=== PATIENT | male | born 1970 | race Caucasian/White ===

== ENCOUNTER 2024-12-25 06:20 | Inpatient (IN) | payer OTHER, SELFPAY ==
[2024-12-25] VITALS (20 sets, daily range): BP systolic 105–162; BP diastolic 53–106; BMI 35.2; BMI 34.3
--- NOTE | 2024-12-25 02:27 | ED.GENMED ---
History of Present Illness
General
Chief Complaint: Chest Pain
Source: patient
Exam Limitations: none
Time Seen by Provider: 12/25/24 02:11
Nursing documentation reviewed up to this point in time: agreed with
History of Present Illness
History of Present Illness:
54-year-old male limited past medical history nondrinker non-smoker presents with intermittent chest pain in his chest into his back describes a pressure felt nauseous this evening when he had his symptoms started about 3 days ago, no prior episodes
before Thursday, no history of DVT PE, no prior abdominal surgery has had knee surgery no history of DVT PE no fever chills does not feel short of breath
Past History
Past History
ED Past Medical History: None
ED Past Surgical History: Orthopedic
Social History
Tobacco: Non-smoker
Alcohol: None
Drug: None
Personal:
Living: with family
Employment: Employed
Family History
Family History: Negative CAD
Review of Systems
Review of Systems
All Other Systems: Not applicable
Constitutional: Denies fever or fatigue
Cardiac: Reports chest pain
ABD/GI: Reports nausea
Phy Exam
Physical Exam
Physical Exam:
Physical Exam
General: no apparent distress, not acutely ill
Neck: No jaundice
Heart: s1/s2 regular rate and rhythm, no murmur. equal radial pulses.
Lungs: no acute respiratory distress. clear bilaterally
Abdomen: Soft nontender
Neuro: alert and oriented. no focal neurological deficits
Skin: no rash
Psychiatric: well kept. interactive and cooperative
Extremities: no edema.
Scores
Heart Score for Chest Pain Patients
STEMI patient?: No
History: Moderately Suspicious
ECG: Normal
Age: >45 - <65 years
Risk Factors: 1 or 2 Risk Factors
Troponin: >1 - <3 x Normal Limit
Heart Score for Chest Pain Patients: 4
Heart Score Risk: 20.3% MACE over next 6 weeks
Course
Orders/Labs/Results
Orders:
Orders
12/25/24 01:52
EKG [Electrocardiogram (*1)] Urgent
Reason for Study: Chest Pain
EKG- Treatment ONCE
12/25/24 02:13
Cardiac Monitoring- Treatment ONCE
IV Insert/Care/Rem.- Treatment PRN
O2 Therapy [RESP] Urgent
Titrate/Wean O2 to maintain O2 sat greater than (%): 90
Special Instructions: Maintain sats >/=90%
Pulse Ox/spot Check [RESP] Urgent
Quantity: 1
Special Instructions: ON ROOM AIR
12/25/24 02:22
Complete Blood Count/With Diff Urgent
Comprehensive Metabolic Panel Urgent
Glycohemoglobin (HgbA1c) Urgent
Lipase Urgent
Comment: ADD ON
NT-proBNP Urgent
Comment: ADD ON
Troponin I Urgent
12/25/24 02:25
CR Chest Portable - 1 View Urgent
Comment:
Reason For Exam: cp
Reason Study Needs to be Portable: Patient Unstable
12/25/24 02:26
Aspirin 325 mg PO NOW STA
Nitroglycerin Sublingual [Nitrostat (Sublingual)] 0.4 mg SL [id number] PRN
12/25/24 02:29
Add On- LAB Urgent
Tests Added?: Lipase
12/25/24 02:38
D-Dimer Urgent
12/25/24 03:00
Electrocardiogram (*1) Urgent
Reason for Study: Chest Pain
EKG- Treatment ONCE
12/25/24 03:24
Add On- LAB Urgent
Tests Added?: proBNP
12/25/24 03:31
Heparin 4,000 units IV NOW STA
Nursing to Place Non Medication Order As Directed
Physician Order: PTT 6 hours after initial start of Heparin infusion
Above order entered?: Yes
12/25/24 03:37
Ondansetron Injectable [Zofran] 4 mg IV NOW STA
12/25/24 03:39
Add On- LAB Urgent
Tests Added?: hemoglobin a1c
12/25/24 03:41
CARDIOLOGY CONSULT Urgent
Consulting Provider: Em Sanches
Was physician already notified: Yes
Metoprolol [Lopressor] 5 mg IV NOW STA
12/25/24 03:45
PTT Urgent
Comment: Obtain baseline before beginning heparin infusion if not already collected
Heparin 19033 Units/250 ml 25,000 units in 250 ml IV PER PROTOCOL
Weight to be used for heparin protocol in kilograms (kg):: 111.4
Protocol:: Cardiac Tx/Acute Coronary
PTT Goal Range to be used:: PTT 73 to 111 seconds
Order type:: Initial
INITIAL Infusion Dose (UNITS/KG/hr) & then follow protocol:: 12 units/kg/hr
Infusion Dose in UNITS/hr & then follow protocol (UNITS/hr):: 1,000
INFUSION RATE in mL/hr & then follow protocol (mL/hr):: 10
PTT less than or equal to 64 seconds:: Increase rate by 200 units/hr (+ 2 mL/hr)
PTT 64.1 to 72.9 seconds:: Increase rate by 100 units/hr (+ 1 mL/hr)
PTT 73 to 111 seconds:: Target Range. No change in rate.
PTT 111.1 to 130.9 seconds:: Decrease rate by 100 units/hr (- 1 mL/hr)
PTT 131 to 199.9 seconds:: HOLD for 1 hr. Then decrease rate by 200 units/hr (- 2 mL/hr)
PTT greater than or equal to 200 seconds:: HOLD for 2 hrs & Notify Provider. Then decrease by 200 units/hr (-
2 mL/hr)
Lab follow-up:: Each change, PTT q6h until 2 consecutive are therapeutic. Then PTT
daily.
Nitroglycerin 100 mg/250 ml [Nitroglycerin Premix] 100 mg in 250 ml IV PER PROTOCOL
Initial dose in mcg/min, then titrate:: 20
Titrate to keep:: Chest Pain Free
Titrate by mcg/min:: 5 mcg/min, may increase by 10 mcg/min if dose > 20 mcg/min
Frequency of titrations (minutes):: every 3-5 minutes
Maximum dose in mcg/min:: 200
Begin to taper infusion when:: Remained at goal for 2hrs
Taper by mcg/min:: 5 mcg/min
Frequency of taper (minutes) if patient maintains goal:: 30
Taper to off?: Yes
If infusion off & no longer maintaining goal:: Contact Provider
12/25/24 05:48
Admit/Transfer Patient As Directed
Co-Sign Provider:
Level of Care: Inpatient admission
Assign to:: IVU
Physician / Group: Vargas
Diagnosis: NSTEMI / ACS
Reason for Hospitalization: NSTEMI / ACS
Expected length of stay greater than two midnights?: Yes
ELOS- Estimated Length of Stay in days: 3
I certify the patient meets the requirements for IP care: Yes
PRN Pain Medication Management As Directed
May give lesser potent ordered pain med per pt: Yes
preference::
Protocol:: Medication orders for pain may be administered in a
manner that supports deferring to patient preference
when the pt is:
- Requesting an ordered lesser potent pain medication.
Least to most potent pain medications are defined
as: acetaminophen < NSAID < tramadol < opioids
(morphine, oxycodone, hydromorphone).
- Requesting a lesser dose of the same medication IF
ORDERED.
- Requesting a less intrusive route of administration
if both routes are prescribed by the provider (PO <
IV).
12/25/24 05:49
Code Status As Directed
Resuscitation Status: Full Code
12/25/24 06:26
Troponin I Urgent
12/25/24 10:00
PTT Urgent
Abnormal Lab Results
12/25/24
02:22
Neutrophils % 75.7 H %
(42.2-75.2)
Lymphocytes % 17.7 L %
(20.5-51.1)
Glucose 219 H mg/dl
(70-99)
Troponin I 0.088 H* ng/ml
12/25/24 02:22
12/25/24 02:22
Vital Signs
Initial and Last Documented VS:
Initial Vital Signs
Temp Pulse Resp BP Pulse Ox
97.8 F 72 26 140/94 100
12/25/24 01:58 12/25/24 01:58 12/25/24 01:58 12/25/24 01:58 12/25/24 01:58
Last Documented Vital Signs
Temp Pulse Resp BP Pulse Ox
97.6 F 63 16 105/53 98
12/25/24 02:08 12/25/24 06:30 12/25/24 06:30 12/25/24 06:00 12/25/24 06:30
MDM/Problems Addressed
Differential Diagnosis Includes:
ACS PE pneumo pancreatitis biliary
MDM/Problems Addressed:
Chest pain
*Pulse Oximetry
SaO2: 97
Oxygen Mode of Delivery: Room air
Patient hypoxic: no
*Critical Care Note
Total Time (30-74mins, 75-104mins- exclusive of procedures): 33
Update Note
Update Note:
315, update patient with persistent pain serial EKG noted did improve with nitrates, troponin is pending proBNP pending chest x-ray noted follow-up closely
ED Attending Note
-
Portions of this chart may have been created with voice recognition software.� Occasional wrong word or��sound alike� substitutions may have occurred due to the inherent limitations of voice recognition software.
Discharge Plan
Departure
Patient Disposition: Admit
Date of Disposition: 12/25/24
Time of Disposition: 03:40
Admit to: IVU
Presentation/result/management discussed w/ accepting MD/DO: Hospitalist
Condition: Fair
Discharge Problem:
ACS (acute coronary syndrome)
Interventions
Interventions:
*Risk Screen - Suicide Last Done: 12/25/24 01:58
*General Assessment Last Done: 12/25/24 02:10
*Neglect/Abuse Screening Last Done: 12/25/24 01:58
*ED- Fall Risk Assessment Last Done: 12/25/24 02:10
*ED COVID-19 Vaccine History Last Done: 12/25/24 02:10
ED- Cardiac Assessment Last Done: 12/25/24 02:10
[2024-12-25 02:34] LABS: Hematocrit 46.4 % (39.0-52.0); Hemoglobin 15.8 g/dL (13.0-18.0); Mean Corp Hgb Conc. 34.1 g/dL (33.0-37.0); Mean Corpuscular Volume 87.2 fL (80.0-94.0); Nucleated Red Blood Cells % 0 % (-); Platelet Count 191 10^3/uL (130-400); Red Cell Dist. Width 13.2 % (11.5-14.5)
[2024-12-25] MEDS: ASPIRIN 325 MG PO (02:37)
[2024-12-25] MEDS: NITROSTAT (SUBLINGUAL) 0.4 MG SL (02:53)
[2024-12-25 02:55] LABS: ALT (SGPT) 40 U/L (0-50); AST (SGOT) 35 U/L (17-59); Albumin 4.4 g/dl (3.5-5.0); Alkaline Phosphatase 65 U/L (38-126); Blood Urea Nitrogen 17 mg/dl (9-20); Calcium 9.3 mg/dl (8.4-10.2); Carbon Dioxide 28 mmol/L (22-30); Chloride 103 mmol/L (98-107); Estimated Creatinine Clearance > 125 ml/min; Glucose 219 mg/dl (70-99); Lipase 101 U/L (23-300); Potassium 4.3 mmol/L (3.5-5.1); Sodium 138 mmol/L (135-145); Total Protein 7.4 g/dl (6.3-8.2); eGFR > 60.00
[2024-12-25 03:31] LABS: Troponin I 0.088 ng/ml
[2024-12-25 03:33] LABS: D-Dimer < 0.27 ug/mlFEU (0.00-0.50)
[2024-12-25] MEDS: ZOFRAN 4 MG IV (03:41)
[2024-12-25] MEDS: HEPARIN 4000 UNITS IV (03:51)
[2024-12-25] MEDS: HEPARIN 25000 UNITS/250 ML IV (03:55)
[2024-12-25 04:10] LABS: APTT 24.2 Sec (23.4-35.0)
--- NOTE | 2024-12-25 05:50 | HPS.HSE ---
Family Physician
-
Family Physician: Geraldine Smith PA-C
Chief Complaint
-
Chest Pain
History of Present Illness
Patient is a 54y M with no known PMH who presents to ED complaining of chest pain x 4-5 days. Patient states that his symptoms initially started on Thursday while [place] football [place] the beach. He noted chest heaviness / pressure at the time
which improved after he rested fo several minutes. Later that evening he had similar pressure while walking - which again improved with rest. He reports intermittent similar symptoms over the next few days - always with activity and improved with
rest. He states that pain became much worse this evening and did not resolve quickly. He noted associated nausea / dry heaves. No diaphoresis or shortness of breath. Pain radiated into the back and both shoulders.
Patient presented to the ED for further evaluation and treatment.
He states that the pain was initially 7/10 on arrival and is currently /10.
Medical History
Past Medical History
Past Medical History: Reports None
Past Surgical History: Reports Other
Additional Past Surgical History:
L Quadriceps Repair
Social History
Tobacco: Non-smoker
Alcohol: Occasional
Drug: None
Family History
Family History: Other (CAD on mother / father sides of the family.)
Allergies / Home Medications
Allergies reflects when Allergies were last updated in [facility].
Home Medications with original date entered in [facility]
Allergy/Medication List:
Allergies
Allergy/AdvReac Type Severity Reaction Status Date / Time
No Known Allergies Allergy Verified 12/25/24 02:00
Home Medications
No Meds [No Current Medications] 12/25/24
Review of Systems
-
History Source: Patient
A 12 point ROS was completed and negative except as noted: Yes
Constitutional: Denies Fever or Chills
Respiratory: Denies Cough or Trouble Breathing
Cardiac: Reports Chest Pain; Denies Palpitations
Abdomen/GI: Reports Nausea and Vomiting; Denies Abdominal Pain or Diarrhea
: Denies Dysuria or Frequency
Musculoskeletal: Denies Joint Pain or Edema
Neurological: Denies Dizzy or Headache
Psych: Denies Depression or Anxiety
Physical Exam
Vital Signs
Vital Signs
Temp Pulse Resp BP Pulse Ox
97.6 F 59 19 111/61 98
12/25/24 02:08 12/25/24 04:19 12/25/24 04:15 12/25/24 04:19 12/25/24 04:15
Physical Exam
General: Other (54y M in no acute distress.)
HEENT: Moist mucous membranes and PERRLA
Respiratory: Clear; No Wheezes, Rales or Rhonchi
Cardiac: S1/S2 and Regular Rhythm; No Murmur
GI: Soft, Non Tender, Non Distended and Normal Bowel Sounds
Musculoskeletal: No Clubbing, No Cyanosis and No Edema
Neuro: AO x 3
Laboratory Results
-
12/25/24 02:22
12/25/24 02:22
Laboratory Results
APTT 24.2 Sec (23.4-35.0) 12/25/24 03:45
Total Bilirubin 0.6 mg/dl (0.2-1.3) 12/25/24 02:22
AST 35 U/L (17-59) 12/25/24 02:22
ALT 40 U/L (0-50) 12/25/24 02:22
Alkaline Phosphatase 65 U/L (38-126) 12/25/24 02:22
Troponin I 0.088 ng/ml H* 12/25/24 02:22
Lipase 101 U/L (23-300) 12/25/24 02:22
Impression/Plan
-
A/P: Patient is a 54y M with no known PMH who presents to ED complaining of chest pain x several days.
NSTEMI / ACS
- Admit for further evaluation and treatment.
- Good story for anginal symptoms. EKG unremarkable. Initial troponin 0.088.
- Follow troponin to peak.
- IV heparin, ASA, statin, etc.
- Check lipid panel.
- Follow for any new / recurrent symptoms.
- Cardiology consulted for further recommendations and probable ischemic evaluation.
Hyperglycemia
- Random glucose > 200. Check A1C to confirm DM-II diagnosis.
- Follow glucose and cover with SSI as needed.
Obesity due to excess calories
- Affects all aspects of care including glycemic control and cardiac risk.
- Encourage healthy diet and increased activity with goal of weight loss.
DVT Prophylaxis: On IV heparin at present.
Code Status: Full
[2024-12-25 07:42] LABS: Troponin I 0.369 ng/ml
[2024-12-25 08:08] LABS: Glucose - Point of Care 140 mg/dl (70-99)
--- NOTE | 2024-12-25 08:37 | W.PN.HOSP.TC ---
Today's Communication/Plan
-
see A/P
Assessment / Plan
Assessment / Plan
54 yo M with no known PMH who presented to ED complaining of chest pain x 4-5 days. His symptoms initially started on Thursday while playing football on the beach. He noted chest heaviness / pressure at the time which improved after he rested
for several minutes. Later that evening he had similar pressure while walking - which again improved with rest. He reports intermittent similar symptoms over the next few days - always with activity and improved with rest. He states that pain
became much worse this evening and did not resolve quickly. He noted associated nausea / dry heaves. No diaphoresis or shortness of breath. Pain radiated into the back and both shoulders.
Patient presented to the ED for further evaluation and treatment.
A/P:
# Chest pain, likely 2/2 NSTEMI / ACS
EKG unremarkable.
Troponin 0.088 -> 0.369, cont to follow to peak.
Check echo
Cont IV heparin, ASA, statin, etc.
Check LDL
Cardiology consulted for further recommendations and probable ischemic evaluation.
# Hyperglycemia
Random glucose > 200.
Check A1C to confirm DM-II diagnosis.
Follow glucose and cover with SSI as needed.
# Obesity due to excess calories, BMI 34
Affects all aspects of care including glycemic control and cardiac risk.
Encourage healthy diet and increased activity with goal of weight loss.
DVT Prophylaxis: On IV heparin at present.
Code Status: Full
DW RN
Anticipated Discharge: > 48 hours
Subjective/Interval History
-
Date of Service: December 25, 2024
Objective Data
-
Labs:
Laboratory Results
12/25/24 12/25/24 12/25/24
02:22 03:45 10:00
WBC 8.0
Hgb 15.8
Hct 46.4
Plt Count 191
APTT 24.2 Pending
Sodium 138
Potassium 4.3
Chloride 103
Carbon Dioxide 28
BUN 17
Creatinine 0.8
Glucose 219 H
Calcium 9.3
Total Bilirubin 0.6
AST 35
ALT 40
Alkaline Phosphatase 65
Vital Signs:
Vital Signs
Temp Pulse Resp BP Pulse Ox
36.4 C 63 16 105/53 98
12/25/24 02:08 12/25/24 06:30 12/25/24 06:30 12/25/24 06:00 12/25/24 06:30
Review of Systems
-
History Source: Patient
Cardiac: Reports Chest Pain (mild ache at rest)
Physical Exam
-
General: Well Developed, Well Nourished, No Apparent Distress, Comfortable, Conversant and Obese; Negative Respiratory Distress
HEENT: Normocephalic, Atraumatic, Nose Appears Normal and Ears Appear Normal
Respiratory: Clear to Auscultation and Non Labored Respirations; Negative Accessory Resp Muscle Use
Cardiac: Regular Rhythm and S1/S2
GI: Soft, Nontender, Nondistended and Normal Bowel Sounds
Skin: Warm and Dry
Neuro: Awake, Alert, Oriented and AO x 3
Psych: Calm and Intact Judgement/Insight
Data Reviewed
-
Labs: Labs Reviewed by me
[2024-12-25] MEDS: LOW STRENGTH ASPIRIN 81 MG PO (08:45)
[2024-12-25 09:23] LABS: LDL Cholesterol, Direct 162 mg/dl
--- NOTE | 2024-12-25 09:37 | CON.CAR ---
Consultation
Consultation Request
Date/Time Consultation Requested: December 25, 2024
Date/Time Consultation Performed: December 25, 2024
Requesting Provider: Emergency department
Performing Provider: Dr Jose Sanches
Reason for Consultation: Chest pain
Medical History
-
Chief Complaint: Chest pain
History of Present Illness:
He presents to the emergency department complaining of chest discomfort over the past 4 to 5 days. He notes that chest pain symptoms started 5 days ago while playing football on the beach. He noted a heaviness and pressure in his chest at that
time. This improved after several minutes of rest. Later that evening he had a similar episode of chest discomfort while walking which again improved with rest. He reports that he has had similar symptoms intermittently over the subsequent days,
always with activity and always improves with rest. His pain worsened in severity on the evening of presentation. There was associated nausea and some dry heaves. He did note radiation to his back and both shoulders. No diaphoresis and no
shortness of breath.
In the emergency department there is concern for unstable coronary syndrome.
He was treated with sublingual nitroglycerin and started on intravenous heparin, given aspirin and started on statin.
My evaluation of his EKGs
ECG 1: Sinus rhythm at 72 bpm, normal and no significant change from ECG dated 12/06/2021
ECG 2: Sinus rhythm at 61 bpm, normal and no change.
Initial troponin 0.088 and subsequent troponin 4 hours later 0.369
Initial proBNP is 32.7.
Chest x-ray shows normal-sized heart there is suggestion of possible increased pulmonary vascular congestion.
Past medical history:
Denies
Past Medical History
Past Medical History: None
Social History
Tobacco: Non-Smoker
Alcohol: Occasional
Drug: None
Personal:
Living: With Family
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
Family History
Family History: Reviewed & Not Pertinent (No family history of early coronary artery disease. His mother had coronary artery stenting age 75.)
Allergies / Home Medications
Allergy/AdvReac Type Severity Reaction Status Date / Time
No Known Allergies Allergy Verified 12/25/24 02:00
�Medication �Instructions �Recorded �Confirmed �Type
No Meds [No Current Medications] 12/25/24 12/25/24 History
Review of Systems
-
History Source: Patient
All other systems: Negative unless noted
Constitutional: No Symptoms
EENT: No Symptoms
Respiratory: No Symptoms
Cardiac: Chest Pain (As described in the HPI)
Abdomen/GI: No Symptoms
: No Symptoms
Musculoskeletal: No Symptoms
Skin: No Symptoms
Neurological: No Symptoms
Endocrine: No Symptoms
Hematologic/Lymphatic: No Symptoms
Physical Exam
Vital Signs
Temp Pulse Resp BP Pulse Ox
97.6 F 63 16 105/53 98
12/25/24 02:08 12/25/24 06:30 12/25/24 06:30 12/25/24 06:00 12/25/24 06:30
Lab Results
12/25/24 02:22
12/25/24 02:22
Troponin I Cancelled 12/25/24 19:17
[id number] Pept 32.7 pg/ml 12/25/24 02:22
Physical Exam
General: Well Developed, Well Nourished, No Apparent Distress and Comfortable
HEENT: Normocephalic, Anicteric and Moist Mucous Membranes
Respiratory: Clear (Clear to auscultation bilaterally without wheezes rales or rhonchi) and Non Labored Respirations
Cardiac: S1/S2 (Regular rate and rhythm with normal S1 and S2, no S3 no S4. There is a grade 1/6 apical holosystolic murmur and no rubs. PMI is normally placed) and Regular Rhythm
Breast: Deferred by me
GI: Soft, Non Tender, Non Distended and Normal Bowel Sounds
Rectal: Deferred by Provider
Musculoskeletal: No Clubbing, No Cyanosis and No Edema
Skin: Warm and Dry
Neuro: Awake, Alert, Oriented, AO x 3 and No Motor Deficits
Psych: Calm
Impression / Plan
-
.
Assessment:
Unstable coronary syndrome with recent onset exertional angina and now with rising troponin, meet pain-free in the emergency department with sublingual nitroglycerin and IV heparin, has remained pain-free
Essential hypertension
Recommendations:
Continue IV heparin
Will add oral beta-huey as an antianginal and also for antihypertension effect
Initiate high-dose statin
Continue aspirin 81 mg daily
Trend troponin and ECG
Check fasting lipid profile in the morning
Plan for coronary angiography Thursday
If he recurs with chest discomfort will initiate IV heparin
Discussed with patient in detail including recommendation for coronary angiography. All of his questions were answered. He agrees with plan.
Total time spent today was 75 minutes in preparing to see the patient, seeing the patient and coordination of care. This included review of recent laboratory evaluations, cardiact testing, imaging studies, primary care rtecords, specialty
consultations, hospital records, as well as personally interviewing and examining the patient, which included discussion of their tests, review/ordering medications, and communicating with other healthcare professionals and also treatment planning
as well as counseling.
Data Reviewed
-
EKG: Tracing Personally Visualized and interpreted and Discussed with Patient
Radiology: Image Personally Visualized and interpreted
Labs: Labs Reviewed by me and Discussed with Patient
[2024-12-25 09:56] LABS: Glycohemoglobin (HgbA1c) 6.3 % (4.0-5.6)
[2024-12-25 10:32] LABS: APTT 34.9 Sec (23.4-35.0)
[2024-12-25 10:52] LABS: Troponin I 2.430 ng/ml
[2024-12-25] MEDS: NITROGLYCERIN PREMIX 250 IV (11:43)
[2024-12-25] MEDS: TOPROL XL 25 MG PO ×2 (11:57→19:55)
[2024-12-25] MEDS: TYLENOL 650 MG PO (12:29)
[2024-12-25] MEDS: ALPRAZOLAM ODT 0.25 MG PO (13:58)
[2024-12-25] MEDS: LIPITOR 40 MG PO (18:10)
[2024-12-25 20:02] LABS: APTT 40.7 Sec (23.4-35.0)
[2024-12-25 20:20] LABS: Troponin I 17.900 ng/ml
[2024-12-26] VITALS (16 sets, daily range): BP systolic 93–130; BP diastolic 57–107
--- NOTE | 2024-12-26 00:27 | PTCARENOTE ---
Received pt at change of shift resting in bed, at bedside. SR to SB on tele, HR 50's-70's. pt denies any CP or SOB. Satting 97% on 2L. Heparin and Nitro gtt infusing per protocol. pt made aware of NPO status after midnight, verbalizes
understanding. Trop sent via IV team. Resulted as 17.9, up from 2.430 previously. Dayana Brown, SUB[employer] TE[employer]ER made aware. No further orders at this time. Encouraged pt to call RN with and questions/concerns. Call king within reach.
[2024-12-26] MEDS: HEPARIN 25000 UNITS/250 ML IV (01:15)
[2024-12-26 03:02] LABS: Blood Urea Nitrogen 10 mg/dl (9-20); Calcium 8.7 mg/dl (8.4-10.2); Carbon Dioxide 27 mmol/L (22-30); Chloride 107 mmol/L (98-107); Estimated Creatinine Clearance > 125 ml/min; Glucose 132 mg/dl (70-99); HDL Cholesterol 46 mg/dl; LDL Cholesterol, Calculated 145 mg/dl; Magnesium 1.9 mg/dl (1.6-2.3); Potassium 4.5 mmol/L (3.5-5.1); Sodium 137 mmol/L (135-145); Very Low Density Lipoprotein 33 mg/dl (0-30); eGFR > 60.00
[2024-12-26 03:13] LABS: Troponin I 20.100 ng/ml
[2024-12-26 03:40] LABS: APTT 46.4 Sec (23.4-35.0)
[2024-12-26] MEDS: LOW STRENGTH ASPIRIN 81 MG PO (08:19)
[2024-12-26] MEDS: TOPROL XL 25 MG PO ×2 (08:19→19:45)
--- NOTE | 2024-12-26 08:48 | W.PN.HOSP.TC ---
Today's Communication/Plan
-
see A/P
Assessment / Plan
Assessment / Plan
54 yo M with no known PMH who presented to ED complaining of chest pain x 4-5 days. His symptoms initially started on Thursday while playing football on the beach. He noted chest heaviness / pressure at the time which improved after he rested
for several minutes. Later that evening he had similar pressure while walking - which again improved with rest. He reports intermittent similar symptoms over the next few days - always with activity and improved with rest. He states that pain
became much worse this evening and did not resolve quickly. He noted associated nausea / dry heaves. No diaphoresis or shortness of breath. Pain radiated into the back and both shoulders.
Patient presented to the ED for further evaluation and treatment.
A/P:
# Chest pain, likely 2/2 NSTEMI / ACS
EKG unremarkable.
Troponin 0.088 -> 25, cont to follow to peak.
for [facility] today 12/26, per RN, PCI to LCx and diagonal, follow formal report from card
Echo largely unrevealing: showed EF 55%, Normal left ventricular size, wall thickness and systolic function. No regional wall motion abnormalities are seen. Right ventricular size and systolic function are within normal limits.
cont DAPT ASA and Brillinta
CM to check cost of Brillinta
LDL 145, started Lipitor 40 mg, cont
Card on board
# Prediabetes, new diagnosis
A1C 6.3%
dietary CS
# Hyperlipidemia, new diagnosis
LDL 145, started Lipitor 40 mg
# Obesity due to excess calories, BMI 34
Affects all aspects of care including glycemic control and cardiac risk.
Encourage healthy diet and increased activity with goal of weight loss.
# Anxiety
low dose xanax PRN
DVT Prophylaxis: Off IV heparin
Code Status: Full
DW RN
DW family at bedside
Anticipated Discharge: 24 - 48 hours
Subjective/Interval History
-
Date of Service: December 26, 2024
Objective Data
-
Labs:
Laboratory Results
12/26/24 12/26/24 12/26/24
02:32 02:33 10:05
APTT 46.4 H Pending
Sodium 137
Potassium 4.5
Chloride 107
Carbon Dioxide 27
BUN 10
Creatinine 0.7
Glucose 132 H
Calcium 8.7
Vital Signs:
Vital Signs
Temp Pulse Resp BP Pulse Ox
36.9 C 72 20 119/73 96
12/26/24 07:03 12/26/24 08:19 12/26/24 07:03 12/26/24 08:19 12/26/24 07:03
I&O
12/25/24 12/26/24 12/27/24
06:59 06:59 06:59
Intake Total 2171
Balance 2171
Review of Systems
-
History Source: Patient
Psych: Reports Anxious
Physical Exam
-
General: Well Developed, Well Nourished, No Apparent Distress, Comfortable, Conversant and Obese; Negative Respiratory Distress
HEENT: Normocephalic, Atraumatic, Nose Appears Normal, Ears Appear Normal and Oxygen (1L NC placed after cath )
Respiratory: Clear to Auscultation and Non Labored Respirations; Negative Accessory Resp Muscle Use
Cardiac: Regular Rhythm and S1/S2
GI: Soft, Nontender, Nondistended and Normal Bowel Sounds
Skin: Warm and Dry
Neuro: Awake, Alert, Oriented and AO x 3
Psych: Calm and Intact Judgement/Insight
Data Reviewed
-
Labs: Labs Reviewed by me
[2024-12-26 09:49] LABS: ACT-LR - POC 271 Seconds (116-155)
[2024-12-26 10:01] LABS: ACT-LR - POC 326 Seconds (116-155)
[2024-12-26 10:25] LABS: ACT-LR - POC 308 Seconds (116-155)
[2024-12-26 10:38] LABS: ACT-LR - POC 277 Seconds (116-155)
--- NOTE | 2024-12-26 11:09 | PTCARENOTE ---
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 AAOX3. denies chest pain. right radial TR band intact. pt educated on right arm restrictions. EKG obtained. NSR on telemetry heart rate in 70s. 98% on L nasal cannula. pt updatd on plan of care.
[2024-12-26 11:14] LABS: Troponin I 25.100 ng/ml
--- NOTE | 2024-12-26 12:27 | CM ---
Chart reviewed. Patient is independent of ADLS, lives with his in a [address], 5 [address], 0 DME. Plan is for the patient to return home. CM to assess.
--- NOTE | 2024-12-26 12:45 | CM ---
Pricing of Brilinta 90mg for a 30 day supply through the patient's [facility] is $110 for the brand and $0 for the generic Ticagrelor. Ticagrelor is in stock at his [facility]. Tonie Wright to send a script.
--- NOTE | 2024-12-26 13:00 | PTCARENOTE ---
pt rang call fernando, said he felt short of breath and anxious- placed on 2L oxygen, sat 99%- hospitalist notified, order received for xanax
[2024-12-26] MEDS: ALPRAZOLAM ODT 0.25 MG PO (13:24)
--- NOTE | 2024-12-26 14:39 | ITS.CL.CATH ---
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
Cardiac Catheterization
Procedure Report:
LEFT HEART CATH AND CORONARY INTERVENTION
Date of Procedure: December 26, 2024
Referring: Dr. Jose Sanches
PROCEDURES:
1. Left heart catheterization with coronary and single-plane left ventriculography
2. Successful stenting of the mid circumflex to a large terminal obtuse marginal branch with a 3.0 x 23 mm Xience stent that was implanted at nominal pressures and postdilated to high pressures with a 3.75 mm noncompliant balloon in the proximal to
midportion of the stent and with a 3.0 mm noncompliant balloon in the mid to distal portion of the stent with a nice angiographic result
3. Successful stenting of diagonal branch with a 2.5 x 15 mm Xience stent that was implanted at nominal pressures and postdilated with a 2.5 mm noncompliant balloon
INDICATION: This is a 54-year-old gentleman who reported the onset of waxing and waning substernal chest pressure over the past several weeks. Symptoms would typically occur with exertion and then became more persistent at rest. He continued to
experience substernal chest pressure and was started on IV heparin and received aspirin. His symptoms gradually improved but returned later in the evening and he was started on IV nitroglycerin with resolution in the symptoms. His troponin
increased to 20 ng/mL and he is now referred for coronary angiography.
ACCESS: Right radial artery, 6 Irish sheath
HEMODYNAMICS (mmHg):
AO (s/d, m) : 104/78, 91
LV (s/d) : 105/22
LVEDP : 38
CORONARY FINDINGS
Dominance: Right
LEFT MAIN: Normal
LEFT ANTERIOR DESCENDING: The LAD arises normally from the left main it runs in the anterior interventricular groove. A moderate caliber diagonal branch arises from the mid LAD and has a 70% stenosis in its midportion. The vessel bifurcates
distally into 2 small caliber daughter branches. The mid LAD beyond this diagonal branch has a 65% smooth stenosis just beyond the diagonal origin. The LAD tapers as it approaches the apex to rather small caliber vessel.
CIRCUMFLEX: The circumflex is large and is 100% occluded in its midportion. A distal obtuse marginal branch is noted to fill via faint right to right and moderate left to right collaterals.
RIGHT CORONARY: The right coronary artery is a large-caliber dominant vessel with diffuse minor luminal irregularities but no focal obstructive stenosis. The PDA and posterolateral branch are both patent and both demonstrate moderate luminal
irregularities with no focal obstructive stenosis
VENTRICULOGRAPHY: Left ventriculography is performed in ORDOÑEZ projection. The digital single-plane left ventricular ejection fraction is estimated at 50-55% with anterolateral hypokinesis noted.
ANGIOPLASTY PROCEDURE DETAIL: Upon review of the diagnostic catheterization films the decision was made to proceed with percutaneous revascularization of the 100% occluded mid circumflex. Collaterals were noted to fill the distal vessel. A
regional wall motion abnormality was noted on ventriculogram and he remained on IV nitroglycerin in order to be chest pain-free. Intravenous heparin was administered and the ACT was monitored throughout the procedure. A 180 mg loading dose of
ticagrelor was given prior to the interventional procedure.
A short BMW guidewire across the occluded segment in the mid circumflex with a mild-moderate degree of difficulty and was advanced into the distal vessel. Balloon predilation was performed with a 2.0 x 12 mm Trek balloon. A 3.0 x 23 mm Xience
stent was in position with angiographic and fluoroscopic guidance. The stent was implanted at nominal pressures and postdilated in the proximal and midportion of the stent with a 3.75 mm noncompliant balloon to 20 jane and distally with a 3.0 mm
noncompliant balloon with a nice angiographic result.
Attention was then turned to the high-grade stenosis in the diagonal branch. A BMW guidewire crossed the high-grade stenosis in the midportion of the diagonal branch and a 2.5 x 15 mm Xience stent was implanted at nominal pressures then postdilated
with a 2.5 mm noncompliant balloon to high pressures with a nice angiographic result
SEDATION: 82 minutes of procedural sedation was utilized. An independent medical director occupational health was present to assist with and help manage the patient's level of consciousness and physiologic status
RADIATION SUMMARY: Fluoro Time (min): 17.4, Dose (mGy): 2467, DAP (Gy.cm2) : 152
CONCLUSIONS
1. Non-ST segment elevation myocardial infarction with occlusion of the mid circumflex successfully stented with a 3.0 x 23 mm Xience stent that was postdilated proximally to high pressures with a 3.75 mm noncompliant balloon to 17 jane and with a
3.0 mm noncompliant balloon to 16 jane distally
2. Successful stenting of diagonal branch with a 2.5 x 15 mm Xience stent that was postdilated with a 2.5 mm noncompliant balloon
RECOMMENDATIONS
1. High intensity statin therapy
2. Continue to trend serial troponin until peak and fall
3. Guideline directed medical therapy for blood pressure and lipid control
4. Uninterrupted dual antiplatelet therapy
Copy to: Dr. Jose Sanches
--- NOTE | 2024-12-26 15:12 | PTCARENOTE ---
pt rang stating that he had blood in his urine- unable to assess he had gone in toilet and flushed. urinal provided and asked to call when he uses it. Hospitalist and cardiology PA notified
--- NOTE | 2024-12-26 16:30 | PTCARENOTE ---
right forearm with mild firmness, tenderness to touch. OMAR Wright notified, assessed at bedside. pt reeducated on right arm restrictions. pt voided 700 ml punch colored urine- OMAR bran notified, order for H/H, UA and bladder scan received. pt
bladder scanned for 305 ml
[2024-12-26 17:03] LABS: Troponin I 41.900 ng/ml
[2024-12-26] MEDS: LIPITOR 40 MG PO (17:03)
[2024-12-26 17:15] LABS: Hematocrit 43.4 % (39.0-52.0); Hemoglobin 14.6 g/dL (13.0-18.0)
[2024-12-26 17:29] LABS: Urine Character Cloudy (Clear)
[2024-12-26 17:45] LABS: Urine Red Blood Cell >100 /HPF (0-2); Urine Squamous Cell 0-2 /LPF (Few)
[2024-12-26] MEDS: BRILINTA 90 MG PO (19:45)
--- NOTE | 2024-12-26 20:35 | PTCARENOTE ---
Pt rec'd at change of shift awake,alert watching movie with spouse. Flat affect. No c/o cp or sob. Right radial site with DDI, weak pulse. Slightly firm above puncture site same as previously noted on day shift. Punch color urine noted in urinal
from 3 hrs prior. No clots noted in urine. Pt instructed to continue to save urine for evaluation. call king within reach.
--- NOTE | 2024-12-26 22:39 | PTCARENOTE ---
Pt again with punch color urine with 1 small clot noted. Pt denies feeling anxious and reports no problems with his urine flow.
[2024-12-26 23:01] LABS: Troponin I 33.800 ng/ml
[2024-12-27] VITALS (7 sets, daily range): BP systolic 94–131; BP diastolic 67–83; BMI 33.1
[2024-12-27 05:26] LABS: Hematocrit 42.9 % (39.0-52.0); Hemoglobin 14.7 g/dL (13.0-18.0); Mean Corp Hgb Conc. 34.3 g/dL (33.0-37.0); Mean Corpuscular Volume 87.6 fL (80.0-94.0); Platelet Count 177 10^3/uL (130-400); Red Cell Dist. Width 13.5 % (11.5-14.5)
[2024-12-27 05:49] LABS: Blood Urea Nitrogen 12 mg/dl (9-20); Calcium 8.9 mg/dl (8.4-10.2); Carbon Dioxide 27 mmol/L (22-30); Chloride 107 mmol/L (98-107); Estimated Creatinine Clearance > 125 ml/min; Glucose 121 mg/dl (70-99); Potassium 4.6 mmol/L (3.5-5.1); Sodium 140 mmol/L (135-145); eGFR > 60.00
[2024-12-27 06:03] LABS: Troponin I 22.300 ng/ml
[2024-12-27] MEDS: TOPROL XL 25 MG PO ×2 (08:31→19:42)
[2024-12-27] MEDS: LOW STRENGTH ASPIRIN 81 MG PO (08:31)
[2024-12-27] MEDS: BRILINTA 90 MG PO ×2 (08:32→19:42)
--- NOTE | 2024-12-27 09:29 | W.PN.HOSP.TC ---
Today's Communication/Plan
-
see A/P
Assessment / Plan
Assessment / Plan
54 yo M with no known PMH who presented to ED complaining of chest pain x 4-5 days. His symptoms initially started on Thursday while [place] the beach. He noted chest heaviness / pressure at the time which improved after he rested
for several minutes. Later that evening he had similar pressure while walking - which again improved with rest. He reports intermittent similar symptoms over the next few days - always with activity and improved with rest. He states that pain
became much worse this evening and did not resolve quickly. He noted associated nausea / dry heaves. No diaphoresis or shortness of breath. Pain radiated into the back and both shoulders.
Patient presented to the ED for further evaluation and treatment.
A/P:
# Chest pain 2/2 NSTEMI / ACS
EKG unremarkable.
Troponin 0.088 -> peaked at 41.
s/p [facility] 12/26:
1. occlusion of the mid circumflex successfully stented
2. Successful stenting of diagonal branch
cont DAPT ASA and Ticagrelor
Noted Echo largely unrevealing: EF 55%. No regional wall motion abnormalities are seen. Right ventricular size and systolic function are within normal limits.
LDL 145, started Lipitor 40 mg, cont
Card on board
# Gross Hematuria noted following cardiac cath
Likely due to heparin drip initiated earlier
Urine culture was sent, follow up
Check non-contrast CT AP per discussion with Uro,
Start empiric Flomax
Check bladder scan
Uro CS
# Prediabetes, new diagnosis
A1C 6.3%
dietary CS
# Hyperlipidemia, new diagnosis
LDL 145, started Lipitor 40 mg
# Obesity due to excess calories, BMI 34
Affects all aspects of care including glycemic control and cardiac risk.
Encourage healthy diet and increased activity with goal of weight loss.
# Anxiety
low dose xanax PRN
DVT Prophylaxis: Off IV heparin
Code Status: Full
DW RN
DW at bedside
total time spent 51 min
Anticipated Discharge: 24 - 48 hours
Subjective/Interval History
-
Date of Service: December 27, 2024
Objective Data
-
Labs:
Laboratory Results
12/27/24
04:45
WBC 13.7 H
Hgb 14.7
Hct 42.9
Plt Count 177
Sodium 140
Potassium 4.6
Chloride 107
Carbon Dioxide 27
BUN 12
Creatinine 0.7
Glucose 121 H
Calcium 8.9
Vital Signs:
Vital Signs
Temp Pulse Resp BP Pulse Ox
36.4 C 88 18 109/70 95
12/27/24 07:58 12/27/24 08:31 12/27/24 07:58 12/27/24 08:31 12/27/24 07:58
I&O
12/26/24 12/27/24 12/28/24
06:59 06:59 06:59
Intake Total 2172 / 2172 480 / 480
Output Total 1800 / 1800 450 / 450
Balance 2172 / 2172 -1320 / -1320 -450 / -450
Review of Systems
-
History Source: Patient
Genitourinary: Reports Other (gross hematuria after cardiac cath )
Physical Exam
-
General: Well Developed, Well Nourished, No Apparent Distress, Comfortable, Conversant and Obese; Negative Respiratory Distress
HEENT: Normocephalic, Atraumatic, Nose Appears Normal and Ears Appear Normal
Respiratory: Clear to Auscultation and Non Labored Respirations; Negative Accessory Resp Muscle Use
Cardiac: Regular Rhythm and S1/S2
GI: Soft, Nontender, Nondistended and Normal Bowel Sounds
Skin: Warm and Dry
Neuro: Awake, Alert, Oriented and AO x 3
Psych: Calm and Intact Judgement/Insight
Data Reviewed
-
Labs: Labs Reviewed by me
--- NOTE | 2024-12-27 10:00 | PTCARENOTE ---
Received patient and assumed care of patient at 0645. Assessment completed and documented in shift assessment.
Patient is AAOX4, pleasant and cooperative. Flat affect. SR on monitor. R Radial site CDI, + firmness however + pulse. No pain. RA, CTA. Tolerating cholesterol lowering diet. Is voiding dark red urine, notified attending provider and cardiology. OK
to give Aspirin and Brilinta per hospitalist. OOB without assist. For urology consult.
[2024-12-27] MEDS: FLOMAX 0.4 MG PO (11:43)
--- NOTE | 2024-12-27 11:52 | W.PN.CARDCBS ---
Addendum entered and electronically signed by Wes Jones MD 12/28/24 13:54:
Correction: No arrhythmias on review of telemetry
Addendum entered and electronically signed by Wes Jones MD 12/27/24 12:17:
I saw and examined the patient.
The Chemical Lab Technician's note was reviewed and I agree with the note.
Comment: Briefly, 54-year-old man who presented on 12/25/24 with several days of waxing and waning substernal chest discomfort found to have elevated troponin consistent with NSTEMI. He underwent invasive coronary angiography on 12/26/2024 and found
to have 100% mid circumflex occlusion which was treated with drug-eluting stent. In addition, there was residual disease diagonal vessel disease which was also treated with drug-eluting stent. Troponin peaked at 41.9, but LV systolic function was
preserved by echo with estimated EF of 55%.
This morning patient was resting comfortably in bed and is not experiencing any further chest discomfort or associated dyspnea
Appears euvolemic on exam
Arrhythmias noted on my review of telemetry
Unfortunately, has developed hematuria and is undergoing urologic evaluation
For now would continue DAPT�aspirin/Brilinta
Discussed the importance of cardiac rehab
Reviewed with patient's at bedside
Original Note:
Today's Communication / Plan
-
s/p circ/diag PCI 12/26
now with hematuria. continue asa, brilinta. urology evaluation
Impression / Plan
-
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
Assessment:
CP
NSTEMI s/p mid circ/diagonal PCI 12/26/24
Essential hypertension
Hematuria
Pulmonary nodules by CT imaging
ECHO 12/26/24: EF normal 55%, mild to moderate MR, trace TR
Recommendations:
- Patient presented with chest pain and ruled in for NSTEMI with peak troponin of 41.9
- Underwent cardiac catheterization 12/26/2024 resulting in mid circumflex stent as well as diagonal stent
- Unfortunately overnight developed hematuria. CT abdomen and pelvis pending. Urology has been consulted for evaluation
- Continue aspirin, Brilinta, cannot stop in setting of stenting 12/26. Hemoglobin 14.7 on 12/27
- Continue Toprol 25 mg twice daily
- Echocardiogram with results as above
- LDL 145. High intensity lipid-lowering therapy has been initiated
- Right wrist site clean dry and intact
- Cardiac rehab
- Discussed with nursing. Discussed with patient and family at bedside
Progress Note - Air Launch Weapons Technician
Subjective
Date of Service: December 27, 2024
Reports painless hematuria overnight. No chest pain
Objective
Labs:
12/27/24 04:45
12/27/24 04:45
Labs
Hgb 14.7 g/dL (13.0-18.0) 12/27/24 04:45
Hct 42.9 % (39.0-52.0) 12/27/24 04:45
Plt Count 177 10^3/uL (130-400) 12/27/24 04:45
APTT Cancelled 12/26/24 10:05
Sodium 140 mmol/L (135-145) 12/27/24 04:45
Potassium 4.6 mmol/L (3.5-5.1) 12/27/24 04:45
BUN 12 mg/dl (9-20) 12/27/24 04:45
Creatinine 0.7 mg/dL (0.7-1.3) 12/27/24 04:45
Glucose 121 mg/dl (70-99) H 12/27/24 04:45
Troponins
12/25/24 12/25/24 12/25/24
02:22 06:26 07:17
Troponin I 0.088 H* 0.369 H* D Cancelled
12/25/24 12/25/24 12/25/24
10:15 13:17 19:17
Troponin I 2.430 H* D Cancelled Cancelled
12/25/24 12/26/24 12/26/24
19:45 02:32 10:21
Troponin I 17.900 H* 20.100 H* 25.100 H*
12/26/24 12/26/24 12/27/24
16:22 22:17 04:45
Troponin I 41.900 H* D 33.800 H* 22.300 H* D
Vital Signs and I&O:
Vital Signs
Temp Pulse Resp BP Pulse Ox
97.9 F 90 18 109/70 97
12/27/24 11:39 12/27/24 11:39 12/27/24 11:39 12/27/24 08:31 12/27/24 11:39
Vital Signs
Temp Pulse Resp BP Pulse Ox
97.9 F 90 18 109/70 97
12/27/24 11:39 12/27/24 11:39 12/27/24 11:39 12/27/24 08:31 12/27/24 11:39
Intake & Output
12/25/24 12/26/24 12/27/24 12/28/24
07:59 07:59 07:59 07:59
Intake Total 2172 / 2172 480 / 480
Output Total 1800 / 1800 450 / 450
Balance 2172 / 2172 -1320 / -1320 -450 / -450
Physical Exam
Physical Exam
GEN: No distress, awake, alert, oriented x3
HEENT: supple, anicteric, mmm, EOMI
LUNGS: CTA bilaterally, no wheezes/rales
CV: Reg, S1/S2, no murmur
ABD: soft, BS+, NT/ND
EXT: No cyanosis, clubbing, edema
NEURO: Gross non-focal
SKIN: Warm, pink, dry. No rash. Right wrist site soft, nontender to palpation, dressing clean dry and intact
--- NOTE | 2024-12-27 12:03 | CON.MD ---
Consultation - Medical
-
see dictated note
pt without routine medical care
remote hx of passed kidney stone
denies any voiding sx's
had emergent cath and stents yesterday- was heparinized- now on asa and brilinta
has developed painless hematuria- dark red- no clots
stat ct without contrast- large non-obstructing stone on left- mild bph- some bladder distension but no obvious clot or mass
reviewed with pt and
start flomax
trend hematuria and pvr's- cath/cbi if needed but want to avoid
if bleeding continues- would need to discuss brilinta hold with cardiology
will follow
Consultation
-
Date/Time Consultation Requested: 12/27/24 at 9am
Date/Time Consultation Performed: 12/27/24 at noon
Requesting Provider: Dr Estevez
Performing Provider: Dr Noe
Reason for Consultation: Hematuria
--- NOTE | 2024-12-27 14:45 | CM ---
Chart reviewed. Patient is independent of ADLS, lives with his in a [address], 5 [address], 0 [address]ME. Plan is for the patient to return home. CM to follow
--- NOTE | 2024-12-27 16:30 | PTCARENOTE ---
Patient with slightly softer BP, 94/67. HR 90-110's, occasionally to 120's when OOB. Spoke with attending provider about repeating CBC now. Okay for repeat in AM.
[2024-12-27] MEDS: LIPITOR 40 MG PO (17:40)
--- NOTE | 2024-12-27 21:16 | PTCARENOTE ---
Rec'd pt at change of shift. Pt AAO*3, VSS, and SR on TELE monitor. Tea colored urine noted, pt verbalizes understanding of post void bladder scanning procedure. Pt denies any pain or discomfort and now resting with call king in reach. Plan of
care ongoing.
[2024-12-28 02:58] VITALS: BP 110/77
[2024-12-28 03:07] VITALS: BMI 33.0
[2024-12-28 03:31] LABS: Hematocrit 44.3 % (39.0-52.0); Hemoglobin 15.1 g/dL (13.0-18.0); Mean Corp Hgb Conc. 34.1 g/dL (33.0-37.0); Mean Corpuscular Volume 87.7 fL (80.0-94.0); Platelet Count 185 10^3/uL (130-400); Red Cell Dist. Width 13.2 % (11.5-14.5)
[2024-12-28 03:59] LABS: Blood Urea Nitrogen 14 mg/dl (9-20); Calcium 8.8 mg/dl (8.4-10.2); Carbon Dioxide 24 mmol/L (22-30); Chloride 107 mmol/L (98-107); Estimated Creatinine Clearance > 125 ml/min; Glucose 118 mg/dl (70-99); Magnesium 2.1 mg/dl (1.6-2.3); Potassium 4.3 mmol/L (3.5-5.1); Sodium 137 mmol/L (135-145); eGFR > 60.00
--- NOTE | 2024-12-28 07:41 | W.PN.URO.CBU ---
Today's Communication / Plan
-
continue flomax
trend hematuria
Assessment / Plan
-
hematuria
seems to be clearing on own even with continuation of dapt
will observe this morning and nurse to send picture of next void
if no active hematuria- would be cleared from gu standpoint for discharge with flomax and outpt f/u
will discuss anticoagulation plan with rounding cardiology team today
Diagnosis
-
Date of Service: December 28, 2024
-
Patient Diagnosis:
hematuria
Subjective
-
pt feels okay
says urine is clearing- now light tea- beer colored- did not save for me to check
pvr's have all been around 200cc- no difficulty urinating
Objective
-
Vital Signs
Temp Pulse Resp BP Pulse Ox
98.8 F 77 16 110/77 95
12/28/24 02:58 12/28/24 05:00 12/28/24 02:58 12/28/24 02:58 12/28/24 02:58
Intake and Output
12/27/24 12/28/24 12/29/24
06:59 06:59 06:59
Intake Total 480 / 480 480 / 480
Output Total 1800 / 1800 2675 / 2675
Balance -1320 / -1320 -2195 / -2195
Intake:
Oral fluids 480 / 480 480 / 480
Output:
Urine, Voided 1800 / 1800 2675 / 2675
Other:
Number of approximated MODERATE 2
amounts of urine
Laboratory Results
12/28/24 03:05
12/28/24 03:05
Review of Systems
-
Constitutional: No Symptoms
Respiratory: No Symptoms
Cardiac: No Symptoms
Abdomen/GI: No Symptoms
: No Symptoms
Physical Exam
-
General - no acute distress
[2024-12-28] MEDS: LOW STRENGTH ASPIRIN 81 MG PO (07:48)
[2024-12-28] MEDS: FLOMAX 0.4 MG PO (07:49)
[2024-12-28] MEDS: BRILINTA 90 MG PO (07:49)
[2024-12-28] MEDS: TOPROL XL 25 MG PO (07:49)
--- NOTE | 2024-12-28 09:05 | W.PN.HOSP.TC ---
Today's Communication/Plan
-
see A/P
Assessment / Plan
Assessment / Plan
54 yo M with no known PMH who presented to ED complaining of chest pain x 4-5 days. His symptoms initially started on Thursday while playing football on the beach. He noted chest heaviness / pressure at the time which improved after he rested
for several minutes. Later that evening he had similar pressure while walking - which again improved with rest. He reports intermittent similar symptoms over the next few days - always with activity and improved with rest. He states that pain
became much worse this evening and did not resolve quickly. He noted associated nausea / dry heaves. No diaphoresis or shortness of breath. Pain radiated into the back and both shoulders.
Patient presented to the ED for further evaluation and treatment.
A/P:
# Chest pain 2/2 NSTEMI / ACS
EKG unremarkable.
Troponin 0.088 -> peaked at 41.
s/p [facility] 12/26:
1. occlusion of the mid circumflex successfully stented
2. Successful stenting of diagonal branch
cont DAPT ASA and Ticagrelor
Noted Echo largely unrevealing: EF 55%. No regional wall motion abnormalities are seen. Right ventricular size and systolic function are within normal limits.
LDL 145, started Lipitor 40 mg, cont
Card on board
# Gross Hematuria noted following cardiac cath, now resolved
Likely due to heparin drip initiated earlier
Urine culture no growth
non-contrast CT AP without acute pathology, Nonobstructing bilateral renal stones, Distal left ureteral dilatation possibly due to a recently passed stone.
pt was started empiric Flomax, cont
Appreciate Uro input
# Prediabetes, new diagnosis
A1C 6.3%
dietary education provided
# Hyperlipidemia, new diagnosis
LDL 145, started Lipitor 40 mg
# Obesity due to excess calories, BMI 34
Affects all aspects of care including glycemic control and cardiac risk.
Encourage healthy diet and increased activity with goal of weight loss.
# Anxiety
low dose xanax PRN
# Incidental finding of lung nodules at lung Bases
A few bilateral lower lobe pleural-based 2 to 3 mm pulmonary nodules noted. There is a 4 mm solid noncalcified right lower lobe pulmonary nodule noted.
Informed pt and of finding and recc Nonurgent chest CT which can be organized by PCP
DVT Prophylaxis: Off IV heparin
Code Status: Full
DW at bedside
Anticipated Discharge: Today
Subjective/Interval History
-
Date of Service: December 28, 2024
Objective Data
-
Labs:
Laboratory Results
12/28/24
03:05
WBC 10.5
Hgb 15.1
Hct 44.3
Plt Count 185
Sodium 137
Potassium 4.3
Chloride 107
Carbon Dioxide 24
BUN 14
Creatinine 0.7
Glucose 118 H
Calcium 8.8
Vital Signs:
Vital Signs
Temp Pulse Resp BP Pulse Ox
36.8 C 77 16 111/69 95
12/28/24 07:48 12/28/24 07:49 12/28/24 07:48 12/28/24 07:49 12/28/24 07:48
I&O
12/27/24 12/28/24 12/29/24
06:59 06:59 06:59
Intake Total 480 / 480 480 / 480
Output Total 1800 / 1800 2675 / 2675 525 / 525
Balance -1320 / -1320 -2195 / -2195 -525 / -525
Review of Systems
-
History Source: Patient
Genitourinary: Reports Other (gross hematuria has resolved )
Physical Exam
-
General: Well Developed, Well Nourished, No Apparent Distress, Comfortable, Conversant and Obese; Negative Respiratory Distress
HEENT: Normocephalic, Atraumatic, Nose Appears Normal and Ears Appear Normal
Respiratory: Clear to Auscultation and Non Labored Respirations; Negative Accessory Resp Muscle Use
Cardiac: Regular Rhythm and S1/S2
GI: Soft, Nontender, Nondistended and Normal Bowel Sounds
Skin: Warm and Dry
Neuro: Awake, Alert, Oriented and AO x 3
Psych: Calm and Intact Judgement/Insight
Data Reviewed
-
Labs: Labs Reviewed by me
--- NOTE | 2024-12-28 10:08 | W.PN.CARDCBS ---
Addendum entered and electronically signed by Wes Jones MD 12/28/24 13:52:
I saw and examined the patient on morning rounds.
The Global Risk Management Director's note was reviewed and I agree with the note.
Comment: Briefly, 54-year-old man who presented on 12/25/24 with several days of waxing and waning substernal chest discomfort found to have elevated troponin consistent with NSTEMI. He underwent invasive coronary angiography on 12/26/2024 and found
to have 100% mid circumflex occlusion which was treated with drug-eluting stent. In addition, there was residual disease diagonal vessel disease which was also treated with drug-eluting stent. Troponin peaked at 41.9, but LV systolic function was
preserved by echo with estimated EF of 55%.
This morning patient was resting comfortably in bed and is not experiencing any further chest discomfort or associated dyspnea
Continue DAPT with aspirin/Brilinta -appreciate urology input regarding hematuria
New to metoprolol and high intensity statin
Eventual to cardiac rehab
Stable for discharge from my perspective
Reviewed with patient's at bedside
Original Note:
Today's Communication / Plan
-
Continue aspirin, Brilinta, Toprol, statin
Follow hematuria as an outpatient. Outpatient urologic follow-up
Cardiac rehab
Outpatient cardiac follow-up arranged
Impression / Plan
-
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
Assessment:
CP
NSTEMI s/p mid circ/diagonal PCI 12/26/24
Essential hypertension
Hematuria
Pulmonary nodules by CT imaging
ECHO 12/26/24: EF normal 55%, mild to moderate MR, trace TR
Recommendations:
- Patient presented with chest pain and ruled in for NSTEMI with peak troponin of 41.9
- Underwent cardiac catheterization 12/26/2024 resulting in mid circumflex stent as well as diagonal stent
- then noted hematuria, clearing overnight by patient report. hemoglobin stable. appreciate urology input. started on flomax with plan for OP follow up
- continue asa, brilinta without interruption
- in SR on review of tele overnight. continue toprol 25mg daily
- Echocardiogram with results as above, discussed with patient and at bedside 12/28
- LDL 145. High intensity lipid-lowering therapy has been initiated
- Right wrist site clean dry and intact
- Cardiac rehab
- he has a very physically demanding job working for [employer] (heavy lifting). we discussed 1 week off of work followed by light duty until evaluated by us in office 01/25/25.
- ok for DC from cardiac standpoint
Progress Note - Asphalt Roller Person
Subjective
Date of Service: December 28, 2024
Denies chest pain, shortness of breath. Reports hematuria improving
Objective
Labs:
12/28/24 03:05
12/28/24 03:05
Labs
Hgb 15.1 g/dL (13.0-18.0) 12/28/24 03:05
Hct 44.3 % (39.0-52.0) 12/28/24 03:05
Plt Count 185 10^3/uL (130-400) 12/28/24 03:05
APTT Cancelled 12/26/24 10:05
Sodium 137 mmol/L (135-145) 12/28/24 03:05
Potassium 4.3 mmol/L (3.5-5.1) 12/28/24 03:05
BUN 14 mg/dl (9-20) 12/28/24 03:05
Creatinine 0.7 mg/dL (0.7-1.3) 12/28/24 03:05
Glucose 118 mg/dl (70-99) H 12/28/24 03:05
Troponins
12/25/24 12/25/24 12/26/24
10:15 19:45 02:32
Troponin I 2.430 H* D 17.900 H* 20.100 H*
12/26/24 12/26/24 12/26/24
10:21 16:22 22:17
Troponin I 25.100 H* 41.900 H* D 33.800 H*
12/27/24
04:45
Troponin I 22.300 H* D
Vital Signs and I&O:
Vital Signs
Temp Pulse Resp BP Pulse Ox
98.2 F 77 16 111/69 95
12/28/24 07:48 12/28/24 07:49 12/28/24 07:48 12/28/24 07:49 12/28/24 07:48
Vital Signs
Temp Pulse Resp BP Pulse Ox
98.2 F 77 16 111/69 95
12/28/24 07:48 12/28/24 07:49 12/28/24 07:48 12/28/24 07:49 12/28/24 07:48
Intake & Output
12/26/24 12/27/24 12/28/24 12/29/24
07:59 07:59 07:59 07:59
Intake Total 2172 / 2172 480 / 480 480 / 480
Output Total 1800 / 1800 2675 / 2675 525 / 525
Balance 2172 / 2172 -1320 / -1320 -2195 / -2195 -525 / -525
Physical Exam
Physical Exam
GEN: No distress, awake, alert, oriented x3
HEENT: supple, anicteric, mmm, EOMI
LUNGS: CTA bilaterally, no wheezes/rales
CV: Reg, S1/S2, no murmur
ABD: soft, BS+, NT/ND
EXT: No cyanosis, clubbing, edema
NEURO: Gross non-focal
SKIN: Warm, pink, dry. No rash. Right wrist site clean dry and intact
--- NOTE | 2024-12-28 10:58 | PTCARENOTE ---
Assumed care of pt from date night caregiver RN. AAOx3. NSR on tele, HRs 70s. SpO2 95% on room air. VSS. R radial site dressing CDI. Pulses palpable. Pt cleared by Urology for discharge home. Urine wally at this time. Assessment documented. Discharge
instructions reviewed with pt and at bedside. Plan for discharge home today.
--- NOTE | 2024-12-28 15:26 | W.DCSUMMARY ---
Discharge Summary
Discharge Data
Date of Admission: 12/25/24
Date of Discharge: 12/28/24
Total time spent discharging patient (in min): 40
-
Pending Results: No
Hospital Course
Principal Diagnosis:
Chest pain 2/2 NSTEMI / ACS
Prediabetes, new diagnosis, A1C 6.3%
Hyperlipidemia, new diagnosis, LDL 145, started Lipitor 40 mg
Gross Hematuria noted following cardiac cath, resolved
Incidental finding of lung nodules at lung bases
Chronic Diagnoses:�
Obesity due to excess calories, BMI 34
Consultations:�
Cardiology
Urology
Procedures:�
Cardiac catheterization 12/26:
1. occlusion of the mid circumflex successfully stented
2. Successful stenting of diagonal branch cont DAPT ASA and Ticagrelor
Clinical course:�
This is a 54 year old male with no known past medical history who presented with chest pain, worse with exertion.
Problem 1:
Chest pain 2/2 NSTEMI / ACS.
His EKG was unremarkable but his troponin increased from 0.088 to 41 (peak).
He underwent LHC on 12/26, which noted occlusion of the mid circumflex that was successfully stented, as well as successful stenting of the diagonal branch.
He can continue DAPT ASA and Ticagrelor going forward.
His echo was largely unrevealing: EF 55%. No regional wall motion abnormalities are seen. Right ventricular size and systolic function are within normal limits.
He was noted to have hyperlipidemia with LDL at 145, and Lipitor 40 mg was started which he can continue going forward.
Problem 2:
Prediabetes, new diagnosis with A1C at 6.3%.
Dietary education was provided.
Problem 3:
Gross Hematuria noted following cardiac cath, resolved.
This was likely due to heparin drip which the patient had received on admission.
His Urine culture showed no growth.
His non-contrast CT AP was without acute pathology, noted nonobstructing bilateral renal stones, distal left ureteral dilatation possibly due to a recently passed stone.
He was started with empiric Flomax, which he can continue going forward.
He can also follow up with urology outpt.
Problem 4:
Incidental finding of lung nodules at lung bases.
He has been informed to follow up with his PCP for nonurgent chest CT for further evaluation.
Discharge Plan
-
Patient Disposition: Home (Routine Discharge)
Discharge Diagnosis/Procedures: NSTEMI s/p angioplasty and stent x1 to Left Circumflex and x1 to Diagonal arteries;
New diagnosis of hyperlipidemia (LDL 145);
New diagnosis of prediabetes (A1C 6.3%);
Resolved gross hematuria;
Incidental finding of lung nodules at lung bases
Condition: Good
Diet: As tolerated, Low Fat, Low Cholesterol and Low Sodium
Activity: As tolerated
Additional Activity: no heavy lifting greater than 10 pounds for 1 week!
Driving Restrictions: As prior to admission
Others Tests: CT chest with your PCP
Other Services: Cardiac Rehab
Activity Restrictions/Additional Instructions:
Follow up with your PCP for the few bilateral lower lobe pleural-based pulmonary nodules
Stand Alone Forms: DC Instructions- Cath/EP Lab, Return to Work
Referrals:
[facility]. Cardiac Rehab [Outside] - 01/31/25 1:00 pm
Referral Note: Cardiac Rehab Orientation appointment is on 01/31 at 1PM
The Cardiac Rehab gym is located on the first floor of the [facility].
Eileen Serra PA-C [Specified Professional Personl, Cardiology] - 01/25/25 8:20 am
Geraldine Smith PA-C [Family Provider] - in less than 1 week
Additional Discharge Medication Instructions: Continue ASA and Brilinta for your cardiac stents
You were started on Lipitor for your high cholesterol
Prescriptions:
New
ticagrelor [Brilinta] 90 mg Tablet
90 mg PO BID Qty: 60 11RF
tamsulosin 0.4 mg Capsule
0.4 mg PO DAILY Qty: 30 0RF
atorvastatin 40 mg Tablet
40 mg PO QPM Qty: 30 0RF
aspirin 81 mg Tablet,Chewable
81 mg PO DAILY Qty: 30 0RF
metoprolol succinate 25 mg Tablet Extended Release 24 Hr
25 mg PO BID Qty: 60 0RF
Discharge Orders:
Discharge Patient (As Directed); Ordered 12/28/24
Ordered By: Bridgette Estevez
Care Plan Goals
Care Plan Goals:
Problem: Readiness for enhanced knowledge related to diagnosis and treatment plan
Goal: Understand your diagnosis and treatment plan needs, including medications if applicable.
Instructions: Know your diagnosis, underlying causes and treatment plan options, including medications if applicable. Consult with your health care team to learn about your diagnosis and treatment plan, including medications if applicable.
Discharge Date and Time
Discharge Date/Time: 12/28/24 11:33
Print Language: PUERTO RICAN
== END 2024-12-28 11:33 | disposition home or self-care (01) | DRG 322 ==
LOC: IVU 06:20
PROVIDERS: Internal Medicine Cardiovascular Disease; Internal Medicine Interventional Cardiology; Nurse Practitioner; Physician Assistant; ADMITTING PHYSICIAN Hospitalist; ATTENDING PHYSICIAN Internal Medicine; CONSULT PHYSICIAN Specialist; EMERGENCY PHYSICIAN Emergency Medicine; FAMILY PHYSICIAN Physician Assistant; OTHER PHYSICIAN Internal Medicine Cardiovascular Disease
PROC: 027135Z Dilation of Coronary Artery, Two Arteries with Two Drug-eluting Intraluminal Devices, Percutaneous Approach (ICD-10-PCS; 2024-12-26)
PROC: B2151ZZ Fluoroscopy of Left Heart using Low Osmolar Contrast (ICD-10-PCS; 2024-12-26)
PROC: 4A023N7 Measurement of Cardiac Sampling and Pressure, Left Heart, Percutaneous Approach (ICD-10-PCS; 2024-12-26)
PROC: B2111ZZ Fluoroscopy of Multiple Coronary Arteries using Low Osmolar Contrast (ICD-10-PCS; 2024-12-26)
DX: I21.4 Non-ST elevation (NSTEMI) myocardial infarction (principal); I25.10 Atherosclerotic heart disease of native coronary artery without angina pectoris; R73.03 Prediabetes; R31.0 Gross hematuria; R33.9 Retention of urine, unspecified; E78.5 Hyperlipidemia, unspecified; E66.09 Other obesity due to excess calories; R73.9 Hyperglycemia, unspecified; I10 Essential (primary) hypertension; N20.0 Calculus of kidney; R91.8 Other nonspecific abnormal finding of lung field; F41.9 Anxiety disorder, unspecified; Z68.34 Body mass index [BMI] 34.0-34.9, adult; Z82.49 Family history of ischemic heart disease and other diseases of the circulatory system
CPT/HCPCS: 71045; 74176; 80048; 80053; 80061; 81003; 81015; 82962; 83036; 83690; 83721; 83735; 83880; 84484; 85014; 85018; 85025; 85027; 85347; 85379; 85730; 87086; 93005; 93306; 93458; 96374; 96375; 99152; 99153; 99291; C1725; C1769; C1874; C1887; C1894; C9600; Q9967

== ENCOUNTER → 2025-01-05 14:23 | Outpatient (REF) | payer OTHER, SELFPAY | LOC: HWRAD 14:23 | PROVIDERS: ATTENDING PHYSICIAN Physician Assistant | DX: R91.1 Solitary pulmonary nodule (principal) | CPT/HCPCS: 71250 ==

== ENCOUNTER 2025-01-13 17:34 | Outpatient (RCR) | payer OTHER, SELFPAY | END 2025-01-13 23:59 | disposition home or self-care (01) | LOC: CRHB 17:34 | PROVIDERS: ATTENDING PHYSICIAN Internal Medicine Cardiovascular Disease; FAMILY PHYSICIAN Physician Assistant | DX: I25.10 Atherosclerotic heart disease of native coronary artery without angina pectoris (principal); I25.2 Old myocardial infarction; Z95.5 Presence of coronary angioplasty implant and graft | CPT/HCPCS: 93797; 93798 ==

== ENCOUNTER 2025-02-13 17:51 | Outpatient (RCR) | payer OTHER, SELFPAY ==
[2025-02-11 10:54] LABS: HDL Cholesterol 50 mg/dl; LDL Cholesterol, Calculated 62 mg/dl; Very Low Density Lipoprotein 13 mg/dl (0-30)
== END 2025-02-13 23:59 | disposition home or self-care (01) ==
LOC: CRHB 17:51
PROVIDERS: ATTENDING PHYSICIAN Internal Medicine Cardiovascular Disease; FAMILY PHYSICIAN Physician Assistant
DX: I25.10 Atherosclerotic heart disease of native coronary artery without angina pectoris (principal); I25.2 Old myocardial infarction; Z95.5 Presence of coronary angioplasty implant and graft
CPT/HCPCS: 36415; 80061; 93797; 93798; G0422; G0423

== ENCOUNTER 2025-02-20 16:45 | Outpatient (RCR) | payer OTHER, SELFPAY | END 2025-02-20 18:30 | disposition home or self-care (01) | LOC: CRHB 16:45 | PROVIDERS: ATTENDING PHYSICIAN Internal Medicine Cardiovascular Disease; FAMILY PHYSICIAN Physician Assistant | DX: I25.10 Atherosclerotic heart disease of native coronary artery without angina pectoris (principal); Z95.5 Presence of coronary angioplasty implant and graft; I25.2 Old myocardial infarction | CPT/HCPCS: 93797; 93798 ==